=== PATIENT | male | born 1965 | race Caucasian/White ===

== ENCOUNTER 2017-07-06 20:01 | Emergency (ER) | payer OTHER ==
[2017-07-06 20:12] VITALS: BP 166/82
--- NOTE | 2017-07-06 20:46 | EDM.PDOC ---
ED HPI GENERAL MEDICAL PROBLEM - General Chief Complaint: Chest Pain Stated Complaint: CHEST PAINS Time Seen by Provider: 07/06/17 20:38 Source of Information: Reports: Patient History Limitations: Reports: No Limitations - History of Present Illness INITIAL COMMENTS - FREE TEXT/NARRATIVE: 51-year-old male presents to the ED with reported left precordial chest pain since about 9:00 this morning. He states it's remained constant throughout the entire day and not necessary made worse by anything. Which is a 4 out of 10. She leads a rather sedentary life and did not appreciate pain worsening with any kind of exertion. No known chest wall injuries. He has had similar type pain in the past which was remedied by chiropractor manipulation of anterior rib heads. He has no known coronary disease. He is a smoker pack per day. Of note his vital signs show his O2 sats to be around 90% on room air. He has no recent travel history although his lifestyle is quite sedentary. He has no history of DVT or PE. Denies cough or sputum production. No recent upper respiratory tract illnesses. Suffers from mild GERD but rarely requires Tums or Rolaids. He has no trouble swallowing today. Feels he does feels he does feel short of breath at times. No history of asthma. Ever been told that he has COPD. Onset: Today Onset Date: 07/06/17 Onset Time: 09:00 Duration: Hour(s): Quality: Reports: Ache, Dull, Pressure. Denies: Sharp, Stabbing (Rates pain as 4-10.) Severity: Moderate Improves with: Reports: None Worsens with: Reports: None Context: Denies: Activity, Exercise, Lifting, Sick Contact, Trauma, Other Associated Symptoms: Reports: Chest Pain, Cough (Occasional smoker's cough.), cough w sputum, Diaphoresis, Loss of Appetite, Malaise (Occasional brown sputum production), Shortness of Breath (Did not eat much for supper.). 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 about 1800 hrs.) Chest Pain Score (Numeric/FACES): 5 - Related Data Allergies Allergy/AdvReac Type Severity Reaction Status Date / Time No Known Allergies Allergy Verified 07/06/17 21:07 Home Meds: Home Meds Atenolol 50 mg PO DAILY 04/30/16 [History] Pregabalin [Lyrica] 150 mg PO DAILY 04/30/16 [History] Sertraline HCl 150 mg PO DAILY 04/30/16 [History] ARIPiprazole [Abilify] 40 mg PO DAILY 07/06/17 [History] Vitamin. 1 tab PO DAILY 07/06/17 [History] atorvaSTATin [Lipitor] 40 mg PO BEDTIME 07/06/17 [History] Past Medical History Cardiovascular History: Reports: High Cholesterol, Hypertension Respiratory History: Reports: Sleep Apnea (Diagnosis sleep apnea in the past but cannot stand to wear the CPAP machine.) Musculoskeletal History: Reports: Back Pain, Chronic, Osteoarthritis (Knees) Psychiatric History: Reports: Anxiety, Bipolar, Depression, Other (See Below) ( Chronic insomnia. Has not slept for the last 3 nights. Changes to his medications about a month ago. He was taken off duloxetine and lithium and replaced with sertraline in an escalating dose. Is for review in another month. 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 Little sweaty today.), Decreased Appetite. Denies: Fever, Chills, Weight Loss HEENT: Reports: No Symptoms Respiratory: Reports: Shortness of Breath. Denies: Wheezing, Pleuritic Chest Pain, Cough, Sputum, Hemoptysis, Other Cardiovascular: Reports: Chest Pain (See history of present illness mostly left precordial chest discomfort which she rates 4-10 is been present since about 9: 00 this morning.), Blood Pressure Problem, Dyspnea on Exertion. Denies: Claudication, Edema, Lightheadedness, Orthopnea (Hypertension), Palpitations ( Chronically) Endocrine: Reports: Fatigue GI/Abdominal: Reports: Decreased Appetite (Mildly tonight.). Denies: Abdominal Pain : Reports: No Symptoms Musculoskeletal: Reports: Back Pain, Joint Pain (Knees and hips at times) Skin: Reports: No Symptoms Neurological: Reports: No Symptoms Psychiatric: Reports: No Symptoms Hematologic/Lymphatic: Reports: No Symptoms Immunologic: Reports: No Symptoms ED EXAM, GENERAL - Physical Exam Exam: See Below Exam Limited By: No Limitations General Appearance: Alert, WD/WN, No Apparent Distress, Other (Facial he flushed and does feel slightly warm to palpation but temperature is normal. His reports that he's always got a ruborous complexion.) Eye Exam: Bilateral Eye: Normal Inspection Head: Atraumatic, Normocephalic Neck: Normal Inspection, Supple, Non-Tender, Full Range of Motion. No: Lymphadenopathy (L), Lymphadenopathy (R) Respiratory/Chest: No Respiratory Distress, Lungs Clear, Normal Breath Sounds, No Accessory Muscle Use, Respiratory Distress, Other (Does have chest wall tenderness particularly ribs 3 and 4 midclavicular line on the left precordial chest that radiates slightly towards the left anterior axillary line. It she said this before and chiropractor was able to fix it by adjusting his anterior rib heads.) Cardiovascular: Normal Peripheral Pulses, Regular Rate, Rhythm, No Edema, No Gallop, No Murmur, No Rub Peripheral Pulses: 2+: Posterior Tibial (L), Posterior Tibial (R), Dorsalis Pedis (L), Dorsalis Pedis (R) GI/Abdominal: Normal Bowel Sounds, Soft, Non-Tender, No Organomegaly, No Abnormal Bruit, No Mass, Other Back Exam: Normal Inspection, Full Range of Motion. No: CVA Tenderness (L), CVA Tenderness (R) Extremities: Normal Inspection, Normal Range of Motion, Non-Tender, No Pedal Edema, Other Neurological: Alert, Oriented (No swelling in his lower extremities no pain on palpation of the midline posterior calves to suggest DVT.), CN II-XII Intact, Normal Cognition Psychiatric: Normal Mood, Flat Affect Skin Exam: Warm, Dry, Intact, Normal Color, No Rash EKG INTERPRETATION EKG Date: 07/06/17 Time: 20:10 Rhythm: NSR Rate (Beats/Min): 64 [place]: Normal P-Wave: Present QRS: Other (RSR prime wave in V1 normal variant) ST-T: Normal QT: Prolonged (QT is mildly prolonged) EKG Interpretation Comments: Borderline ECG Course - Vital Signs Last Recorded V/S: Last Vital Signs Temp 35.9 C 07/06/17 20:09 Pulse 66 07/06/17 20:09 Resp 15 07/06/17 20:09 BP 166/82 H 07/06/17 20:09 Pulse Ox 91 L 07/06/17 20:09 - Orders/Labs/Meds Orders: Active Orders 24 hr Category Date Time Status EKG Documentation Completion [RC] STAT Care 07/06/17 20:47 Active Oxygen Therapy [RC] ASDIRECTED Care 07/06/17 20:48 Active Peripheral IV Care [RC] . DIRECTED Care 07/06/17 20:49 Active Chest 1V Frontal [CR] Stat Exams 07/06/17 20:46 Taken Ketorolac [Toradol] Med 07/06/17 21:00 Active 30 mg IVPUSH ONETIME Nitroglycerin/D5W [Nitroglycerin 25 MG/D5W 250 ML] Med 07/06/17 21:00 Active 25 mg in 250 ml IV ASDIRECTED Sodium Chloride 0.9% [Saline Flush] Med 07/06/17 20:48 Active 10 ml FLUSH ASDIRECTED PRN Peripheral IV Insertion Adult [OM.PC] Stat Oth 07/06/17 20:49 Ordered Medication Orders Nitroglycerin/Dextrose (Nitroglycerin 25 Mg/D5w 250 Ml) 25 mg in 250 mls @ 6 mls/hr IV ASDIRECTED MERLY Ketorolac Tromethamine (Toradol) 30 mg IVPUSH ONETIME MERLY Last Admin: 07/06/17 20:54 Dose: 30 mg Sodium Chloride (Saline Flush) 10 ml FLUSH ASDIRECTED PRN PRN Reason: Keep Vein Open Last Admin: 07/06/17 20:54 Dose: 10 ml Labs: Laboratory Tests 07/06/17 07/06/17 07/06/17 Range/Units 20:50 20:50 20:50 WBC 12.35 H (4.23-9.07) K/mm3 RBC 5.03 (4.63-6.08) M/mm3 Hgb 15.0 (13.7-17.5) gm/L Hct 44.7 (40.1-51.0) % MCV 88.9 (79.0-92.2) fl MCH 29.8 (25.7-32.2) pg MCHC 33.6 (32.2-35.5) g/dl RDW Std Deviation 46.3 H (35.1-43.9) fL Plt Count 183 (163-337) K/mm3 MPV 10.0 (9.4-12.3) fl Neutrophils % (Manual) 44 (40-60) % Band Neutrophils % 0 (0-10) % Lymphocytes % (Manual) 43 H (20-40) % Atypical Lymphs % 0 % Monocytes % (Manual) 2 (2-10) % Eosinophils % (Manual) 11 H (0.8-7.0) % Basophils % (Manual) 0 L (0.2-1.2) Platelet Estimate Adequate Plt Morphology Comment Normal RBC Morph Comment Normal PT 10.7 (8.0-13.0) SECONDS INR 1.00 APTT (22-36) SECONDS D-Dimer, Quantitative (0.19-0.59) mg/L Sodium 143 (136-145) mEq/L Potassium 3.9 (3.5-5.1) mEq/L Chloride 103 (98-107) mEq/L Carbon Dioxide 30 (21-32) mEq/L Anion Gap 13.9 (5-15) BUN 15 (7-18) mg/dL Creatinine 1.0 (0.7-1.3) mg/dL Est Cr Clr Drug Dosing 89.36 mL/min Estimated GFR (MDRD) > 60 (>60) mL/min BUN/Creatinine Ratio 15.0 (14-18) Glucose 118 H (74-106) mg/dL Calcium 9.5 (8.5-10.1) mg/dL Magnesium 2.0 (1.8-2.4) mg/dl Total Bilirubin 0.3 (0.2-1.0) mg/dL AST 25 (15-37) U/L ALT 40 (16-63) U/L Alkaline Phosphatase 94 (46-116) U/L CK-MB (CK-2) 1.5 (0-3.6) ng/ml Troponin I < 0.017 (0.00-0.056) ng/mL C-Reactive Protein 1.2 H* (<1.0) mg/dL NT-Pro-B Natriuret Pep (0-125) pg/mL Total Protein 7.2 (6.4-8.2) g/dl Albumin 4.0 (3.4-5.0) g/dl Globulin 3.2 gm/dL Albumin/Globulin Ratio 1.3 (1-2) 07/06/17 07/06/17 07/06/17 Range/Units 20:50 20:50 20:50 WBC (4.23-9.07) K/mm3 RBC (4.63-6.08) M/mm3 Hgb (13.7-17.5) gm/L Hct (40.1-51.0) % MCV (79.0-92.2) fl MCH (25.7-32.2) pg MCHC (32.2-35.5) g/dl RDW Std Deviation (35.1-43.9) fL Plt Count (163-337) K/mm3 MPV (9.4-12.3) fl Neutrophils % (Manual) (40-60) % Band Neutrophils % (0-10) % Lymphocytes % (Manual) (20-40) % Atypical Lymphs % % Monocytes % (Manual) (2-10) % Eosinophils % (Manual) (0.8-7.0) % Basophils % (Manual) (0.2-1.2) Platelet Estimate Plt Morphology Comment RBC Morph Comment PT (8.0-13.0) SECONDS INR APTT 28 (22-36) SECONDS D-Dimer, Quantitative 0.27 (0.19-0.59) mg/L Sodium (136-145) mEq/L Potassium (3.5-5.1) mEq/L Chloride (98-107) mEq/L Carbon Dioxide (21-32) mEq/L Anion Gap (5-15) BUN (7-18) mg/dL Creatinine (0.7-1.3) mg/dL Est Cr Clr Drug Dosing mL/min Estimated GFR (MDRD) (>60) mL/min BUN/Creatinine Ratio (14-18) Glucose (74-106) mg/dL Calcium (8.5-10.1) mg/dL Magnesium (1.8-2.4) mg/dl Total Bilirubin (0.2-1.0) mg/dL AST (15-37) U/L ALT (16-63) U/L Alkaline Phosphatase (46-116) U/L CK-MB (CK-2) (0-3.6) ng/ml Troponin I (0.00-0.056) ng/mL C-Reactive Protein (<1.0) mg/dL NT-Pro-B Natriuret Pep 90 (0-125) pg/mL Total Protein (6.4-8.2) g/dl Albumin (3.4-5.0) g/dl Globulin gm/dL Albumin/Globulin Ratio (1-2) Meds: Medications Generic Name Dose Route Start Last Admin Trade Name Freq PRN Reason Stop Dose Admin Nitroglycerin/Dextrose 25 mg in 250 mls @ 6 mls/hr 07/06/17 21:00 Nitroglycerin 25 Mg/D5w 250 Ml IV ASDIRECTED MERLY 10 MCG/MIN Ketorolac Tromethamine 30 mg 07/06/17 21:00 07/06/17 20:54 Toradol IVPUSH 30 mg ONETIME MERLY Administration Sodium Chloride 10 ml 07/06/17 20:48 07/06/17 20:54 Saline Flush FLUSH 10 ml ASDIRECTED PRN Administration Keep Vein Open - Radiology Interpretation Free Text/Narrative:: 51-year-old male presents to the ED with left precordial chest pressure discomfort which she relates rates as 4 out of 10 since about 9:00 this morning. Pain is remained constant it has not changed in intensity or position. It is not necessary made worse by anything that he does. It's made available but more short of breath than usual he denies any increase in cough. His O2 sats remained around 90% on room air. BP is elevated at time of initial assessment. Lungs are clear however with no signs of congestive failure JVD are not elevated. Heart is sinus with no murmurs noted. To nurse's done the ECG which shows sinus rhythm at 64/m with no signs of ischemia. The QT interval is mildly prolonged due to medications. Plan patient will be started on nitro drip at 10 mcg/m. He has taken a 325 mg Davie aspirin 3 hours before coming to the ED. I will give him Toradol 30 mg IV for pain relief since identify significant chest wall discomfort in ribs 34 midclavicular line on the left side. Concern his his low O2 sats. There is no clear reason for this. Start him on oxygen 2 L/m until we get labs back to see if there is any signs of failure and rule out pulmonary embolism. - Re-Assessments/Exams Free Text/Narrative Re-Assessment/Exam: 07/06/17 21:57 chest x-ray reveals moderate cardiomegaly. Mild diffuse vascular congestion. No pleural effusion.White count is 12.35 with 44% neutrophils no bands and 43% lymphocytes. Hemoglobin is 15.0 with hematocrit of 44.7. White count is 183,000. PT is 10.7 with an INR of 1.0 PTT is 28 with a d-dimer of 0.27. Sodium is 143 with a potassium of 3.9. Chloride 103 with bicarbonate 30. Anion gap is 13.9 with a BUN of 15. Glucose is 118. Calcium is 9.5. Magnesium is 2.0. Bilirubin 0.3. AST is 25. ALT 40. Alkaline phosphatase normal at 94. CK- MB fraction is 1.5 troponin I is less than 0.017. C-reactive protein is 1.2. The labs revealed a mildly elevated white count with perhaps a slight right shift suggesting a viral infection. There is no sign that current chest pain is cardiac related. He has no signs of heart failure. D-dimer is within normal limits. Chest pain appears to be chest wall in origin. Patient does feel better since he had the Toradol given intravenously. Still has localized chest pain to the left anterior third and fourth ribs but no signs of heart failure. He was advised that his heart is a little enlarged and I would recommend cardiology consultation with a view to an echocardiogram. It is likely a little enlarged from uncontrolled BP. Patient and so advised. They will follow-up with her primary care provider to See Dr. Marina-- when he comes out from [place]. Departure - Departure Time of Disposition: 22:27 Disposition: Home, Self-Care 01 Condition: Fair Clinical Impression: Non-cardiac chest pain, Left-sided chest wall pain Referrals: PCP,None [Primary Care Provider] - Forms: ED Department Discharge Additional Instructions: Evaluation in the emergency room today in regards to persistent discomfort in the left mid precordial chest since about 9:00 this morning. It hasn't changed at all and is not necessarily worse with exertion or any activities. Examination reveals localized tenderness particularly to the third and fourth ribs midclavicular line left chest that radiates towards the armpit . Chest x- ray reveals the heart is mildly enlarged and I would suggest further evaluation of the heart itself by an ultrasound of the heart called an echocardiogram. It is important that blood pressure is well controlled as this is the most common cause of making the heart a little enlarged. ECG was negative for any signs of heart attack. Lab tests also proved no evidence of heart related illness with no fluid buildup within the lungs and also no blood clots in the lungs. Therefore at this time I would not recommend any further changes. Chest wall pain should be treated with anti-inflammatory preferably Aleve 2 tablets every 8 hours as needed to relieve pain and inflammation until it goes away. It is okay to see the chiropractor to have your rib head suggested as they can often be the source of pain. Follow-up with personal care physician if any further problems occur. - My Orders Last 24 Hours: My Active Orders 07/06/17 20:46 Chest 1V Frontal [CR] Stat 07/06/17 20:47 EKG Documentation Completion [RC] STAT 07/06/17 20:48 Oxygen Therapy [RC] ASDIRECTED Sodium Chloride 0.9% [Saline Flush] 10 ml FLUSH ASDIRECTED PRN 07/06/17 20:49 Peripheral IV Care [RC] . DIRECTED Peripheral IV Insertion Adult [OM.PC] Stat 07/06/17 21:00 Ketorolac [Toradol] 30 mg IVPUSH ONETIME Nitroglycerin/D5W [Nitroglycerin 25 MG/D5W 250 ML] 25 mg in 250 ml IV ASDIRECTED - Assessment/Plan Last 24 Hours: My Active Orders 07/06/17 20:46 Chest 1V Frontal [CR] Stat 07/06/17 20:47 EKG Documentation Completion [RC] STAT 07/06/17 20:48 Oxygen Therapy [RC] ASDIRECTED Sodium Chloride 0.9% [Saline Flush] 10 ml FLUSH ASDIRECTED PRN 07/06/17 20:49 Peripheral IV Care [RC] . DIRECTED Peripheral IV Insertion Adult [OM.PC] Stat 07/06/17 21:00 Ketorolac [Toradol] 30 mg IVPUSH ONETIME Nitroglycerin/D5W [Nitroglycerin 25 MG/D5W 250 ML] 25 mg in 250 ml IV ASDIRECTED
[2017-07-06] MEDS ORDERED: Sodium Chloride 0.9% 10 ML Syringe FLUSH PRN (20:48)
[2017-07-06] MEDS ORDERED: Nitroglycerin/D5W 25 MG/250 ML BOTTLE IV SCH (21:00)
[2017-07-06] MEDS ORDERED: Ketorolac 30 MG/ML SDV IVPUSH SCH (21:00)
--- NOTE | 2017-07-07 06:33 | CR ---
Chest: Portable view of the chest was obtained. Comparison: No prior chest x-ray, previous chest CT dated 04/30/16. Heart size and mediastinum are within normal limits for portable technique. Minimal linear scarring is noted within the left mid to lower lung. Lungs otherwise are clear. Bony structures are grossly intact. Impression: 1. Incidental findings. Nothing acute is appreciated on portable chest x-ray. Diagnostic code #2
== END 2017-07-06 22:50 | disposition home or self-care (01) ==
LOC: JD.ED 20:01
DX: R07.89 Other chest pain (principal); E78.00 Pure hypercholesterolemia, unspecified; I10 Essential (primary) hypertension; F17.210 Nicotine dependence, cigarettes, uncomplicated; Z79.899 Other long term (current) drug therapy
CPT/HCPCS: 36415; 71045; 80053; 82553; 83735; 83880; 84484; 85025; 85379; 85610; 85730; 86140; 93005; 96374; 99285; J1885; J7050; 93010; 99284-25

== ENCOUNTER 2024-07-13 12:22 | Emergency (ER) | payer OTHER ==
[2024-07-13] MEDS: Aspirin 81 MG Tab.Chew PO ONE (12:41)
[2024-07-13] MEDS ORDERED: Naloxone 0.4 MG/ML SDV IVPUSH PRN (12:45)
[2024-07-13 12:52] LABS: BASOPHILS PERCENT AUTO 0.4 % (0.0-1.0); EOSINOPHILS ABSOLUTE AUTO 2.1 K/mm3 (0.0-0.4); EOSINOPHILS PERCENT AUTO 18.7 % (0.0-6.0); HEMOGLOBIN 14.7 gm/dl (14.0-18.0); IMMATURE GRAN ABSOLUTE AUTO 0.04 K/mm3 (0.00-0.05); IMMATURE GRAN PERCENT AUTO 0.4 % (0.0-0.4); LYMPHOCYTES ABSOLUTE AUTO 2.4 K/mm3 (1.0-4.8); LYMPHOCYTES PERCENT AUTO 21.6 % (24.0-44.0); MEAN CORPUSCULAR HEMOGLOBIN 28.7 pg (28.0-32.0); MEAN CORPUSCULAR HGB CONC 33.4 g/dl (32.0-36.0); MEAN CORPUSCULAR VOLUME 85.8 fl (83.0-99.0); MEAN PLATELET VOLUME 9.8 fl (9.4-12.4); MONOCYTES ABSOLUTE AUTO 0.7 K/mm3 (0.0-0.8); MONOCYTES PERCENT AUTO 6.5 % (0.0-8.0); NEUTROPHILS ABSOLUTE AUTO 5.8 K/mm3 (1.8-7.7); NEUTROPHILS PERCENT AUTO 52.4 % (41.0-71.0); PLATELET COUNT,PLT 206 K/mm3 (150-400); RED BLOOD CELL COUNT 5.13 M/mm3 (4.52-5.90); WHITE BLOOD CELL COUNT,WBC 11.05 K/mm3 (3.9-11.3)
[2024-07-13] MEDS: Morphine 2 MG/ML SYRINGE IVPUSH ONE (13:04)
[2024-07-13 13:20] LABS: A/G RATIO 1.1 (1-2); ALBUMIN 3.8 g/dl (3.4-5.0); ANION GAP 12.7 (5-15); BILIRUBIN TOTAL 0.4 mg/dL (0.2-1.0); BUN/CREATININE RATIO 13.3 (14-18); CALCIUM 9.4 mg/dL (8.5-10.1); CREATININE 0.9 mg/dL (0.7-1.3); EST CRCL DRUG DOSING (CG) 91.65 mL/min; POTASSIUM,K 3.7 mEq/L (3.5-5.1); PROTEIN TOTAL,TP 7.4 g/dl (6.4-8.2)
[2024-07-13 13:31] LABS: SLIDE REVIEW ABNORMAL SMEAR
[2024-07-13] MEDS: Ketorolac 30 MG/ML SDV IVPUSH ONE (13:55)
[2024-07-13 15:46] VITALS: BP 142/90; PULSE 66
== END 2024-07-13 15:40 | disposition home or self-care (01) ==
LOC: JD.ED 12:22
DX: R07.89 Other chest pain (principal); I10 Essential (primary) hypertension; E78.00 Pure hypercholesterolemia, unspecified; E11.9 Type 2 diabetes mellitus without complications; M19.90 Unspecified osteoarthritis, unspecified site; Z79.899 Other long term (current) drug therapy; Z79.811 Long term (current) use of aromatase inhibitors
CPT/HCPCS: 36415; 71045; 71045-26; 80053; 83880; 84484; 85025; 93005; 93010; 96374; 96375; 99283; 99285-25; A9270-GY; J1885; J2270